=== PATIENT | male | born 1960 | race African-American/Black ===

== ENCOUNTER 2016-08-27 21:26 | Emergency (ER) | payer SELFPAY ==
[~2016-08-27] VITALS: Ht 190.5 cm; Wt 124.3 kg
[2016-08-27 22:57] VITALS: BP 167/107
== END 2016-08-27 23:06 | disposition left against medical advice (07) ==
LOC: ER 21:30
DX: M79.672 Pain in left foot (principal); M79.671 Pain in right foot; Z53.21 Procedure and treatment not carried out due to patient leaving prior to being seen by health care provider